=== PATIENT | male | born 1970 | race Caucasian/White ===

== ENCOUNTER 2017-08-23 18:46 | Emergency (ER) | payer SELFPAY ==
[~2017-08-23] VITALS: Ht 170.2 cm; Wt 89.8 kg
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
--- NOTE | 2017-08-23 19:46 | NUR ---
PT BROUGHT TO CT
[2017-08-23] MEDS ORDERED: HYDROCODONE/APAP 10/325MG 1 EA TABLET ONE (20:00)
[2017-08-23] MEDS ORDERED: HYDROCODONE/APAP 10/325MG 1 EA TABLET PO ONE (20:00)
[2017-08-23 21:59] VITALS: BP 140/62
== END 2017-08-23 21:59 | disposition home or self-care (01) ==
LOC: ER 18:50
DX: S13.4XXA Sprain of ligaments of cervical spine, initial encounter (principal); S23.3XXA Sprain of ligaments of thoracic spine, initial encounter; Z88.0 Allergy status to penicillin; V47.5XXA Car driver injured in collision with fixed or stationary object in traffic accident, initial encounter; Y93.89 Activity, other specified; Y92.413 State road as the place of occurrence of the external cause; Y99.8 Other external cause status
CPT/HCPCS: 72125; 99284; A4606; Z7610